=== PATIENT | male | born 1995 | race Caucasian/White ===

== ENCOUNTER 2019-08-22 18:52 | Emergency (ER) | payer BC, OTHER ==
[~2019-08-22] VITALS: Ht 187 cm; Wt 100.0 kg
--- NOTE | 2019-08-22 19:27 | ED Lower Extremity ---
General Chief Complaint: Lower Extremity Stated Complaint: RIGHT ANKLE INJURY Source: patient Exam Limitations: no limitations History of Present Illness Date Seen by Provider: August 22, 2019 Time Seen by Provider: 19:25 Initial Comments To ER with reports of a right ankle injury. He complains of pain to the medial aspect of the distal tibia on the right. While he was walking at the [employer] in [place] he tripped and heard a popping noise. He was able to bear minimal weight on this on the way back to the car. Pain/Injury Location: right ankle Method of Injury: fell, twisted Modifying Factors: Worse With Movement Allergies and Home Medications Patient Home Medication List Home Medication List Reviewed: Yes Review of Systems Constitutional: see HPI EENTM: see HPI Respiratory: no symptoms reported Cardiovascular: no symptoms reported Genitourinary: no symptoms reported Musculoskeletal: see HPI Skin: no symptoms reported Psychiatric/Neurological: No Symptoms Reported Past Tkptnrl-Qghwhc-Ukhdee Hx Patient Social History Alcohol Use: Occasionally Uses Recreational Drug Use: No Smoking Status: Never a Smoker Recent Foreign Travel: No Contact w/Someone Who Travel: No Recent Hopitalizations: No Seasonal Allergies Seasonal Allergies: Yes Past Medical History Surgeries: Yes (kidney stent ) Respiratory: No Cardiac: No Neurological: No Genitourinary: No Gastrointestinal: No Musculoskeletal: No Endocrine: No HEENT: No Cancer: No Psychosocial: No Blood Disorders: Yes (Rod Oneal) Physical Exam Vital Signs Vital Signs - First Documented 08/22/19 19:23 Temp 36.8 Pulse 86 Resp 14 Pulse Ox 98 O2 Delivery Room Air Capillary Refill : Height, Weight, BMI Height: '" Weight: lbs. oz. kg; BMI Method: General Appearance: WD/WN, no apparent distress Respiratory: no respiratory distress, no accessory muscle use Hips: bilateral hip non-tender, bilateral hip normal inspection, bilateral hip normal range of motion Legs: right leg other (tenderness to palpation medial aspect right ankle just behind the tibia.) Knees: bilateral knee non-tender, bilateral knee normal inspection, bilateral knee normal range of motion Ankles: bilateral ankle non-tender, bilateral ankle normal inspection, bilateral ankle normal range of motion Feet: bilateral foot non-tender, bilateral foot normal inspection, bilateral foot normal range of motion Neurologic/Psychiatric: alert, normal mood/affect, oriented x 3 Skin: normal color, warm/dry Progress/Results/Core Measures Results/Orders My Orders Orders - MAYELA NOLAN APRN Ankle, Right, 3 Views (08/22/19 19:19) Vital Signs/I&O 08/22/19 19:23 Temp 36.8 Pulse 86 Resp 14 B/P (MAP) Pulse Ox 98 O2 Delivery Room Air Departure Communication (Admissions) NAME: MIREYA ALLEN MED REC#: [id number] PT STATUS: REG ER : 1995 PHYSICIAN: MAYELA NOLAN APRN ADMIT DATE: 08/22/19/ER Draft Date of Exam:08/22/19 ANKLE, RIGHT, 3 VIEWS CLINICAL HISTORY: Fall. Rolled ankle. Pain just above the ankle. COMPARISON: None. TECHNIQUE: 3 views of the right ankle. FINDINGS: There is no acute fracture or dislocation of the right ankle. Alignment is anatomic. The tibial plafond and talar dome have a normal appearance. There is subtle widening of the medial clear space of the right ankle. No large joint effusion is seen in the right ankle. Soft tissue edema is noted along the lateral malleolus. IMPRESSION: 1. No acute fracture or dislocation in the right ankle. Soft tissue edema is noted along the lateral malleolus. 2. Subtle widening of the medial clear space of the right ankle, which may represent ligamentous injury. Dictated on workstation # [id number] Dict: 08/22/191940 Trans: 08/22/191945 [facility] [id number] Interpreted by: GUICHO DELVALLE DO Electronically signed by: Impression Primary Impression: Sprain and strain of ankle Disposition: 01 HOME, SELF-CARE Condition: Stable Departure-Patient Inst. Decision time for Depature: 19:44 Referrals: NO,LOCAL PHYSICIAN (PCP) Primary Care Physician ADILENE ALMANZAR MD, MICHAEL P MD Patient Instructions: Ankle Sprain (DC) Add. Discharge Instructions: 1. Return to ER for any concerns 2. Follow-up with your doctor next week 2. Use the crutches as needed for pain with walking. When you are able to walk without significant pain and putting weight on his leg then you can stop using the crutches. All the ankle brace in the meantime take Tylenol and ibuprofen for pain control in the meantime. All discharge instructions reviewed with patient and/or family. Voiced understanding. MAYELA NOLAN APRN August 22, 2019 19:27
--- NOTE | 2019-08-22 19:46 | Diagnostic Imaging Report ---
CLINICAL HISTORY: Fall. Rolled ankle. Pain just above the ankle. COMPARISON: None. TECHNIQUE: 3 views of the right ankle. FINDINGS: There is no acute fracture or dislocation of the right ankle. Alignment is anatomic. The tibial plafond and talar dome have a normal appearance. There is subtle widening of the medial clear space of the right ankle. No large joint effusion is seen in the right ankle. Soft tissue edema is noted along the lateral malleolus. IMPRESSION: 1. No acute fracture or dislocation in the right ankle. Soft tissue edema is noted along the lateral malleolus. 2. Subtle widening of the medial clear space of the right ankle, which may represent ligamentous injury. Dictated by: Dictated on workstation # [id number]
--- OUTSIDE RECORDS SUMMARY | 2019-08-22 19:47 | XMS REPORT ---
Author Author Abdirahman GARCIA Organization [facility] Address [address] [place] [address] Care Team Providers Care Support Specialist Name Role Phone BRAXTON GARCIA Unavailable PROBLEMS Unknown Problems ALLERGIES No Known Allergies ENCOUNTERS Encounter Location Date Diagnosis [facility] [address] [facility] [id number] [place] [address] 11 Sep, 2017 Laceration of left foot, ini tial encounter S91.312A IMMUNIZATIONS No Known Immunizations SOCIAL HISTORY Never Assessed REASON FOR VISIT cut on inside of right foot by great toe. cut it in a pond about an hour ago. jesús white, last tdap was 4 years ago. PLAN OF CARE Activity Details Follow Up prn Reason: VITAL SIGNS Height 75 in 2017-09-17 Weight 184.8 lbs 2017-09-17 Temperature 98.8 degrees Fahrenheit 2017-09-17 Heart Rate 80 bpm 2017-09-17 Respiratory Rate 20 2017-09-17 BMI 23.10 kg/m2 2017-09-17 Blood pressure systolic 120 mmHg 2017-09-17 Blood pressure diastolic 74 mmHg 2017-09-17 MEDICATIONS Medication Instructions Dosage Frequency Start Date End Date Duration S tatus Bactrim DS 800-160 MG Orally Twice a day 1 tablet 12h 5 days Active Claritin 10 MG Orally Once a day 1 tablet 24h Active RESULTS No Results PROCEDURES No Known procedures INSTRUCTIONS MEDICATIONS ADMINISTERED No Known Medications MEDICAL (GENERAL) HISTORY Type Description Date Medical History [place]an[place] Surgical History kidney stone surgery
--- OUTSIDE RECORDS SUMMARY | 2019-08-22 19:47 | XMS REPORT | Continuity of Care Document ---
Author Organization Unknown Address Unknown Phone Unavailable Allergies Active Description Code Type Severity Reaction Onset Reported/Identified Relationship to Patient Clinical Status Yes Cats Environment N/A N/A Yes Dogs Environment N/A N/A Yes Dust Environment N/A N/A Yes Horses Environment N/A N/A Yes Mold Environment N/A N/A Yes No Known Medication Allergies Drug N/A N/A Medications There is no data. Problems There is no data. Procedures There is no data. Results Test Result Range CULTURE, ANAEROBIC AND AEROBIC - 0 12:44 CULTURE, ANAEROBIC BACTERIA W/GRAM STAIN SEE NOTE NRG CULTURE, AEROBIC BACTERIA SEE NOTE NRG Encounters ACCT No. Visit Date/Time Discharge Status Pt. 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
[2019-08-22 20:00] VITALS: BP 129/82
== END 2019-08-22 20:06 | disposition home or self-care (01) ==
LOC: ER 18:55
DX: S93.401A Sprain of unspecified ligament of right ankle, initial encounter (principal); W01.0XXA Fall on same level from slipping, tripping and stumbling without subsequent striking against object, initial encounter; Y93.01 Activity, walking, marching and hiking
CPT/HCPCS: 73610